=== PATIENT | female | born 1955 | race African-American/Black ===

== ENCOUNTER 2020-11-01 18:58 | Inpatient (IN) | payer OTHER, MEDICARE ==
[~2020-11-01] VITALS: Ht 172.7 cm; Wt 88.2 kg
[2020-11-01 20:54] LABS: HEMATOCRIT. 44.5 % (36.0-48.0); HEMOGLOBIN. 12.5 g/dL (12.0-16.0); MEAN CORPUSCULAR HEMOGLOBIN 30.1 pg (28.0-32.0); MEAN CORPUSCULAR VOLUME 106.8 fL (81.0-99.0); MEAN PLATELET VOLUME 10.8 fl (7.4-10.4); PLATELET 232 x1000/uL (130-400); RED BLOOD CELL COUNT 4.17 mill/uL (4.2-5.4); RED CELL DISTRIBUTION WIDTH 14.3 % (11.6-14.6)
[2020-11-01 20:59] LABS: CHLORIDE 110 mEq/L (98-107)
[2020-11-01 21:01] LABS: PROTHROMBIN TIME 10.9 sec (9.6-11.0)
[2020-11-01 21:04] LABS: ETHANOL BLOOD < 10 mg/dL
[2020-11-01 21:12] LABS: NUCLEATED RED BLOOD CELLS 1 /100 WBC; PLATELET ESTIMATE NORMAL
[2020-11-01 21:25] LABS: BETA HYDROXYBUTYRATE 12.4 mMol/L (0.0-0.3)
[2020-11-01] MEDS ORDERED: INSULIN REGULAR (DRIP) 100 UNITS in SODIUM CHLORIDE 0.9% 99 ML IV ONE (21:45)
[2020-11-01 21:48] LABS: CLARITY URINE CLEAR (CLEAR); COLOR URINE YELLOW (YELLOW); KETONES URINE 3+ (NEGATIVE); LEUKOCYTE ESTERASE URINE NEGATIVE (NEGATIVE); NITRITE URINE NEGATIVE (NEGATIVE); OCCULT BLOOD URINE 1+ (NEGATIVE); PROTEIN URINE 2+ (NEGATIVE); SPECIFIC GRAVITY URINE 1.023 (1.005-1.030); UROBILINOGEN URINE 0.2 E.U./dL (0.2-1.0)
[2020-11-01] MEDS ORDERED: SODIUM CHLORIDE 0.9% 1,000 ML IV ONE ×3 (22:00→22:45)
[2020-11-01 22:06] LABS: *AMPHETAMINES SCREEN URINE NEGATIVE (NEGATIVE); *BARBITURATES SCREEN URINE NEGATIVE (NEGATIVE); *BENZODIAZEPINES SCREEN URINE NEGATIVE (NEGATIVE); *COCAINE SCREEN URINE NEGATIVE (NEGATIVE); METHADONE URINE SCREEN NEGATIVE (NEGATIVE); OPIATES URINE SCREEN NEGATIVE (NEGATIVE)
[2020-11-01 22:07] LABS: CANNABINOID URINE SCREEN NEGATIVE (NEGATIVE); PHENCYCLIDINE URINE SCREEN NEGATIVE (NEGATIVE)
[2020-11-01] MEDS ORDERED: INSULIN REGULAR (DRIP) 100 UNITS in SODIUM CHLORIDE 0.9% 99 ML IV NR (22:45)
[2020-11-02] MEDS ORDERED: ONDANSETRON HCL 4MG/2ML INJ IV PRN (11:30)
[2020-11-02] MEDS ORDERED: ACETAMINOPHEN 325MG TABLET PO PRN (11:30)
[2020-11-02] MEDS ORDERED: SODIUM CHLORIDE 0.9% 1,000 ML IV SCH (11:30)
[2020-11-02] MEDS ORDERED: CEFTRIAXONE 1 G PREMIX 50 ML IV SCH (12:30)
[2020-11-02] MEDS ORDERED: CEFTRIAXONE SODIUM 1 G/VIAL ONE (13:29)
[2020-11-02 14:07] LABS: BG BASE EXCESS -20.8 mmol/L (-2.0-2.0); BG CARBOXYHEMOGLOBIN 0.1 % (0.5-1.5); BG DEOXYHEMOGLOBIN 10.6 % (0.0-5.0); BG HCO3 ACT 6.9 mmol/L (22.0-26.0); BG METHEMOGLOBIN 0.5 % (0.0-1.5); BG OXYGEN SATURATION 89.3 % (92.0-98.5); BG OXYHEMOGLOBIN 88.8 % (94.0-97.0); BG PCO2 22.2 mmHg (35.0-45.0); BG PH 7.112 (7.350-7.450); BG PO2 53.2 mmHg (75.0-100.0); BG SAMPLE SITE RIGHT BRACHIAL; BG VENT MODE NASAL CANNULA
[2020-11-02 14:54] LABS: HEMATOCRIT. 35.9 % (36.0-48.0); HEMOGLOBIN. 11.4 g/dL (12.0-16.0); MEAN CORPUSCULAR HEMOGLOBIN 29.9 pg (28.0-32.0); MEAN CORPUSCULAR VOLUME 93.9 fL (81.0-99.0); MEAN PLATELET VOLUME 10.2 fl (7.4-10.4); PLATELET 231 x1000/uL (130-400); RED BLOOD CELL COUNT 3.82 mill/uL (4.2-5.4); RED CELL DISTRIBUTION WIDTH 12.9 % (11.6-14.6)
[2020-11-02] MEDS: CEFTRIAXONE 1,000 MG in DEXTROSE 5% WATER 50 ML IV SCH (15:00)
[2020-11-02] MEDS ORDERED: INSULIN GLARGINE UD 100 UNITS/ML SYR SUBCUT NR (15:00)
[2020-11-02] MEDS ORDERED: DEXTROSE 50% WATER 50ML SYRINGE IV PRN (15:00)
[2020-11-02 15:22] LABS: PLATELET ESTIMATE NORMAL
[2020-11-02 15:27] LABS: PHOSPHORUS 0.8 mg/dL (2.5-4.9)
[2020-11-02] MEDS: AZITHROMYCIN 500 MG in DEXT 5% WATER 250 ML IV SCH (15:35)
[2020-11-02] MEDS: DEXT 5%/0.45% NACL 1000ML 1,000 ML IV SCH (15:40)
[2020-11-02] MEDS ORDERED: HALOPERIDOL LACTATE 5MG/ML VIAL IM PRN (17:45)
[2020-11-02] MEDS: INSULIN LISPRO (HIGH DOSE) 100 UNITS/ML SUBCUT SCH (18:00)
[2020-11-02] MEDS: BLOOD SUGAR DIAGNOSTIC STRIP TEST SCH (18:24)
[2020-11-02] MEDS ORDERED: HEPARIN 5000 UNITS/ML VIAL SUBCUT SCH (21:00)
[2020-11-03] MEDS: DEXAMETHASONE 10 MG/ML VIAL IV SCH ×2 (01:09→14:26)
[2020-11-03] MEDS ORDERED: HALOPERIDOL LACTATE 5MG/ML VIAL IM PRN (01:15)
[2020-11-03 04:46] LABS: HEMATOCRIT. 41.4 % (36.0-48.0); HEMOGLOBIN. 13.2 g/dL (12.0-16.0); MEAN CORPUSCULAR VOLUME 94.1 fL (81.0-99.0); MEAN PLATELET VOLUME 10.6 fl (7.4-10.4); PLATELET 237 x1000/uL (130-400); RED CELL DISTRIBUTION WIDTH 13.1 % (11.6-14.6)
[2020-11-03 04:47] LABS: BG BASE EXCESS -19.3 mmol/L (-2.0-2.0); BG CARBOXYHEMOGLOBIN 0.4 % (0.5-1.5); BG DEOXYHEMOGLOBIN 10.7 % (0.0-5.0); BG FRACTION INSPIRED OXYGEN 100; BG HCO3 ACT 8.7 mmol/L (22.0-26.0); BG METHEMOGLOBIN 1.6 % (0.0-1.5); BG OXYGEN SATURATION 89.1 % (92.0-98.5); BG OXYHEMOGLOBIN 87.3 % (94.0-97.0); BG PCO2 27.8 mmHg (35.0-45.0); BG PH 7.113 (7.350-7.450); BG SAMPLE SITE RIGHT RADIAL; BG TOTAL HEMOGLOBIN 13.3 g/dL (12.0-18.0); BG VENT MODE MASK - NRB
[2020-11-03 04:52] LABS: CHLORIDE 127 mEq/L (98-107)
[2020-11-03 05:10] LABS: PLATELET ESTIMATE NORMAL
[2020-11-03] MEDS: INSULIN LISPRO (HIGH DOSE) 100 UNITS/ML SUBCUT SCH ×4 (09:09→17:44)
[2020-11-03] MEDS: DEXT 5%/0.45% NACL 1000ML 1,000 ML IV SCH (09:09)
[2020-11-03] MEDS: BLOOD SUGAR DIAGNOSTIC STRIP TEST SCH ×5 (09:10→21:00)
[2020-11-03] MEDS ORDERED: INSULIN GLARGINE UD 100 UNITS/ML SYR SUBCUT SCH (10:00)
[2020-11-03] MEDS ORDERED: DEXTROSE 5% WATER 1,000 ML IV SCH (11:15)
[2020-11-03] MEDS ORDERED: DEXTROSE 50% WATER 50ML SYRINGE IV PRN (11:30)
[2020-11-03] MEDS ORDERED: SODIUM BICARBONATE 50 MEQ in DEXTROSE 5% WATER 1,000 ML IV SCH (12:00)
[2020-11-03] MEDS ORDERED: POTASSIUM PHOS,M-BASIC-D-BASIC 30 MMOL in DEXT 5% WATER 500 ML IV NR (13:00)
[2020-11-03] MEDS: INSULIN GLARGINE UD 100 UNITS/ML SYR SUBCUT SCH (14:26)
[2020-11-03] MEDS: AZITHROMYCIN 500 MG in DEXT 5% WATER 250 ML IV SCH (14:27)
[2020-11-03] MEDS: ENOXAPARIN 100MG/ML SYR SUBCUT SCH (14:30)
[2020-11-03] MEDS ORDERED: NOREPINEPHRINE 8MG/250ML PMX 250 ML IV ONE (15:00)
[2020-11-03] MEDS ORDERED: MIDAZOLAM HCL 100 MG in DEXT 5% WATER 80 ML IV PRN (15:30)
[2020-11-03] MEDS ORDERED: NOREPINEPHRINE 8 MG in DEXT 5% WATER 242 ML IV NR (15:30)
[2020-11-03] MEDS ORDERED: PHENYLEPHRINE 100 MG in DEXT 5% WATER 240 ML IV PRN (15:30)
[2020-11-03] MEDS ORDERED: FENTANYL CITRATE/PF 2,500 MCG in SODIUM CHLORIDE 0.9% 200 ML IV PRN (15:30)
[2020-11-03] MEDS ORDERED: NOREPINEPHRINE 8 MG in DEXT 5% WATER 242 ML IV ONE (15:30)
[2020-11-03 16:19] LABS: BG BASE EXCESS -20.3 mmol/L (-2.0-2.0); BG CARBOXYHEMOGLOBIN 0.2 % (0.5-1.5); BG DEOXYHEMOGLOBIN 3.4 % (0.0-5.0); BG FRACTION INSPIRED OXYGEN 100; BG HCO3 ACT 8.2 mmol/L (22.0-26.0); BG METHEMOGLOBIN 2.3 % (0.0-1.5); BG OXYGEN SATURATION 96.5 % (92.0-98.5); BG OXYHEMOGLOBIN 94.1 % (94.0-97.0); BG PCO2 27.9 mmHg (35.0-45.0); BG PH 7.087 (7.350-7.450); BG PO2 86.1 mmHg (75.0-100.0); BG SAMPLE SITE RIGHT BRACHIAL; BG TOTAL HEMOGLOBIN 11.9 g/dL (12.0-18.0); BG TOTAL RESPIRATORY RATE 28 b/min; BG VENT MODE VENT - AC
[2020-11-03] MEDS: SODIUM BICARBONATE 150 MEQ in DEXTROSE 5% WATER 850 ML IV SCH (16:39)
[2020-11-03] MEDS: CEFTRIAXONE 1,000 MG in DEXTROSE 5% WATER 50 ML IV SCH (16:39)
[2020-11-03] MEDS ORDERED: SODIUM BICARBONATE 8.4% 1 MEQ/ML 50ML SYR IV NR (17:30)
[2020-11-03] MEDS ORDERED: INSULIN LISPRO 100 UNITS/ML SUBCUT SCH (23:30)
[2020-11-04] MEDS: SODIUM BICARBONATE 150 MEQ in DEXTROSE 5% WATER 850 ML IV SCH ×2 (00:54→11:23)
[2020-11-04] MEDS: BLOOD SUGAR DIAGNOSTIC STRIP TEST SCH ×6 (00:54→20:00)
[2020-11-04] MEDS: INSULIN LISPRO 100 UNITS/ML SUBCUT SCH ×5 (03:48→18:06)
[2020-11-04] MEDS: DEXAMETHASONE 10 MG/ML VIAL IV SCH (09:07)
[2020-11-04 09:27] LABS: CHLORIDE 118 mEq/L (98-107); HEMATOCRIT. 33.8 % (36.0-48.0); HEMOGLOBIN. 11.1 g/dL (12.0-16.0); MEAN CORPUSCULAR HEMOGLOBIN 30.2 pg (28.0-32.0); MEAN CORPUSCULAR VOLUME 92.2 fL (81.0-99.0); MEAN PLATELET VOLUME 11.4 fl (7.4-10.4); PLATELET 171 x1000/uL (130-400); RED BLOOD CELL COUNT 3.67 mill/uL (4.2-5.4); RED CELL DISTRIBUTION WIDTH 13.3 % (11.6-14.6)
[2020-11-04] MEDS: INSULIN GLARGINE UD 100 UNITS/ML SYR SUBCUT SCH (10:18)
[2020-11-04 10:41] LABS: NUCLEATED RED BLOOD CELLS 1 /100 WBC; PLATELET ESTIMATE NORMAL
[2020-11-04 12:08] LABS: PHOSPHORUS 2.9 mg/dL (2.5-4.9)
[2020-11-04] MEDS: ENOXAPARIN 100MG/ML SYR SUBCUT SCH (12:13)
[2020-11-04] MEDS ORDERED: POTASSIUM CHLORIDE INJ 40 MEQ in DEXT 5% WATER 250 ML IV ONE (12:30)
[2020-11-04] MEDS: DEXTROSE 5% WATER 1,000 ML IV SCH (13:57)
[2020-11-04] MEDS: AZITHROMYCIN 500 MG in DEXT 5% WATER 250 ML IV SCH (13:57)
[2020-11-04 14:09] LABS: BG BASE EXCESS -7.6 mmol/L (-2.0-2.0); BG CARBOXYHEMOGLOBIN 0.7 % (0.5-1.5); BG DEOXYHEMOGLOBIN 3.3 % (0.0-5.0); BG FRACTION INSPIRED OXYGEN 100; BG HCO3 ACT 17.3 mmol/L (22.0-26.0); BG METHEMOGLOBIN 2.3 % (0.0-1.5); BG OXYGEN SATURATION 96.6 % (92.0-98.5); BG OXYHEMOGLOBIN 93.7 % (94.0-97.0); BG PCO2 32.8 mmHg (35.0-45.0); BG PH 7.339 (7.350-7.450); BG PO2 87.3 mmHg (75.0-100.0); BG SAMPLE SITE RIGHT RADIAL; BG TOTAL HEMOGLOBIN 10.9 g/dL (12.0-18.0); BG VENT MODE VENT - AC
[2020-11-04] MEDS: CEFTRIAXONE 1,000 MG in DEXTROSE 5% WATER 50 ML IV SCH (17:43)
[2020-11-05] MEDS: DEXTROSE 5% WATER 1,000 ML IV SCH ×2 (05:50→22:20)
[2020-11-05 08:34] LABS: BG BASE EXCESS -1.3 mmol/L (-2.0-2.0); BG CARBOXYHEMOGLOBIN 0.3 % (0.5-1.5); BG DEOXYHEMOGLOBIN 2.6 % (0.0-5.0); BG HCO3 ACT 21.7 mmol/L (22.0-26.0); BG METHEMOGLOBIN 2.3 % (0.0-1.5); BG OXYGEN SATURATION 97.3 % (92.0-98.5); BG OXYHEMOGLOBIN 94.8 % (94.0-97.0); BG PCO2 30.9 mmHg (35.0-45.0); BG PH 7.465 (7.350-7.450); BG PO2 95.8 mmHg (75.0-100.0); BG SAMPLE SITE RIGHT RADIAL; BG TOTAL HEMOGLOBIN 10.8 g/dL (12.0-18.0); BG VENT MODE VENT - AC
[2020-11-05] MEDS: DEXAMETHASONE 10 MG/ML VIAL IV SCH (09:15)
[2020-11-05] MEDS: BLOOD SUGAR DIAGNOSTIC STRIP TEST SCH ×5 (09:25→20:00)
[2020-11-05] MEDS: INSULIN LISPRO 100 UNITS/ML SUBCUT SCH ×6 (09:25→20:00)
[2020-11-05] MEDS: INSULIN GLARGINE UD 100 UNITS/ML SYR SUBCUT SCH (10:24)
[2020-11-05] MEDS: ENOXAPARIN 100MG/ML SYR SUBCUT SCH (12:30)
[2020-11-05] MEDS: AZITHROMYCIN 500 MG in DEXT 5% WATER 250 ML IV SCH (13:50)
[2020-11-05] MEDS: CEFTRIAXONE 1,000 MG in DEXTROSE 5% WATER 50 ML IV SCH (14:22)
[2020-11-06 06:02] LABS: HEMATOCRIT. 26.6 % (36.0-48.0); HEMOGLOBIN. 8.5 g/dL (12.0-16.0); MEAN CORPUSCULAR VOLUME 90.7 fL (81.0-99.0); MEAN PLATELET VOLUME 11.1 fl (7.4-10.4); PLATELET 197 x1000/uL (130-400); RED BLOOD CELL COUNT 2.93 mill/uL (4.2-5.4); RED CELL DISTRIBUTION WIDTH 13.4 % (11.6-14.6)
[2020-11-06 06:08] LABS: CHLORIDE 111 mEq/L (98-107)
[2020-11-06] MEDS: DEXT 5%/0.45% NACL 1000ML 1,000 ML IV SCH (07:15)
[2020-11-06] MEDS: BLOOD SUGAR DIAGNOSTIC STRIP TEST SCH ×4 (08:00→17:15)
[2020-11-06] MEDS: INSULIN LISPRO 100 UNITS/ML SUBCUT SCH ×4 (08:00→18:00)
[2020-11-06] MEDS: DEXAMETHASONE 10 MG/ML VIAL IV SCH (09:20)
[2020-11-06] MEDS: INSULIN GLARGINE UD 100 UNITS/ML SYR SUBCUT SCH (10:15)
[2020-11-06 11:55] LABS: PLATELET ESTIMATE NORMAL
[2020-11-06] MEDS: ENOXAPARIN 100MG/ML SYR SUBCUT SCH (12:22)
[2020-11-06 17:11] LABS: BG BASE EXCESS -4.2 mmol/L (-2.0-2.0); BG CARBOXYHEMOGLOBIN 0.5 % (0.5-1.5); BG DEOXYHEMOGLOBIN 1.3 % (0.0-5.0); BG FRACTION INSPIRED OXYGEN 75; BG HCO3 ACT 19.2 mmol/L (22.0-26.0); BG OXYGEN SATURATION 98.7 % (92.0-98.5); BG OXYHEMOGLOBIN 97.2 % (94.0-97.0); BG PCO2 28.8 mmHg (35.0-45.0); BG PH 7.441 (7.350-7.450); BG PO2 153.4 mmHg (75.0-100.0); BG SAMPLE SITE RIGHT RADIAL; BG TOTAL HEMOGLOBIN 9.2 g/dL (12.0-18.0); BG TOTAL RESPIRATORY RATE 30 b/min; BG VENT MODE VENT - AC
[2020-11-06 17:51] LABS: CREATINE KINASE 180 IU/L (26-192)
[2020-11-07] MEDS: BLOOD SUGAR DIAGNOSTIC STRIP TEST SCH ×6 (00:20→20:00)
[2020-11-07] MEDS: INSULIN LISPRO 100 UNITS/ML SUBCUT SCH ×6 (00:22→20:00)
[2020-11-07 06:52] LABS: HEMATOCRIT. 27.6 % (36.0-48.0); HEMOGLOBIN. 8.8 g/dL (12.0-16.0); MEAN CORPUSCULAR HEMOGLOBIN 29.8 pg (28.0-32.0); MEAN CORPUSCULAR VOLUME 93.2 fL (81.0-99.0); MEAN PLATELET VOLUME 11.5 fl (7.4-10.4); PLATELET 191 x1000/uL (130-400); RED BLOOD CELL COUNT 2.96 mill/uL (4.2-5.4); RED CELL DISTRIBUTION WIDTH 13.8 % (11.6-14.6)
[2020-11-07 06:54] LABS: CHLORIDE 107 mEq/L (98-107)
[2020-11-07 06:59] LABS: PHOSPHORUS 3.9 mg/dL (2.5-4.9)
[2020-11-07 08:07] LABS: BG BASE EXCESS -6.9 mmol/L (-2.0-2.0); BG CARBOXYHEMOGLOBIN 0.3 % (0.5-1.5); BG DEOXYHEMOGLOBIN 3.3 % (0.0-5.0); BG FRACTION INSPIRED OXYGEN 100; BG HCO3 ACT 18.3 mmol/L (22.0-26.0); BG OXYGEN SATURATION 96.7 % (92.0-98.5); BG OXYHEMOGLOBIN 95.4 % (94.0-97.0); BG PCO2 35.4 mmHg (35.0-45.0); BG PH 7.332 (7.350-7.450); BG PO2 96.1 mmHg (75.0-100.0); BG SAMPLE SITE RIGHT RADIAL; BG TOTAL HEMOGLOBIN 9.8 g/dL (12.0-18.0); BG VENT MODE VENT - AC
[2020-11-07] MEDS: DEXAMETHASONE 10 MG/ML VIAL IV SCH (09:54)
[2020-11-07] MEDS: INSULIN GLARGINE UD 100 UNITS/ML SYR SUBCUT SCH (11:30)
[2020-11-07] MEDS: ENOXAPARIN 100MG/ML SYR SUBCUT SCH (12:30)
[2020-11-07] MEDS: DEXT 5%/0.45% NACL 1000ML 1,000 ML IV SCH ×2 (12:31→23:05)
[2020-11-07 14:20] LABS: NUCLEATED RED BLOOD CELLS 5 /100 WBC; PLATELET ESTIMATE NORMAL
[2020-11-07] MEDS ORDERED: CEFTRIAXONE 1 G PREMIX 50 ML IV SCH (17:00)
[2020-11-07] MEDS ORDERED: CEFTRIAXONE 1,000 MG in DEXTROSE 5% WATER 50 ML IV SCH (17:30)
[2020-11-07] MEDS ORDERED: CEFTRIAXONE SODIUM 1 G/VIAL ONE (18:06)
[2020-11-07] MEDS ORDERED: AZITHROMYCIN 500 MG in SODIUM CHLORIDE 0.9% 250 ML IV SCH (18:30)
[2020-11-07 21:33] LABS: TOTAL IRON BINDING CAPACITY 140 ug/dL (250-450)
[2020-11-07] MEDS ORDERED: INSULIN GLARGINE UD 100 UNITS/ML SYR SUBCUT SCH (22:00)
[2020-11-07 22:06] LABS: VITAMIN B12 SERUM > 2000.0 pg/mL (211-911)
[2020-11-07 23:22] LABS: FERRITIN 1650 ng/mL (10-291)
[2020-11-08] MEDS ORDERED: PHENYLEPHRINE 100 MG in SODIUM CHLORIDE 0.9% 240 ML IV SCH ×2
[2020-11-08 03:07] LABS: BG DEOXYHEMOGLOBIN 20.1 % (0.0-5.0); BG FRACTION INSPIRED OXYGEN 100; BG HCO3 ACT 17.6 mmol/L (22.0-26.0); BG METHEMOGLOBIN 1.4 % (0.0-1.5); BG OXYGEN SATURATION 79.4 % (92.0-98.5); BG OXYHEMOGLOBIN 77.5 % (94.0-97.0); BG PCO2 40.8 mmHg (35.0-45.0); BG PH 7.253 (7.350-7.450); BG PO2 46.9 mmHg (75.0-100.0); BG TOTAL HEMOGLOBIN 11.6 g/dL (12.0-18.0); BG VENT MODE VENT - AC
[2020-11-08] MEDS ORDERED: NOREPINEPHRINE 8 MG in SODIUM CHLORIDE 0.9% 242 ML IV PRN (04:30)
[2020-11-08] MEDS ORDERED: SODIUM CHL 0.45% + KCL 20MEQ/L 1,000 ML IV SCH (06:00)
[2020-11-08] MEDS ORDERED: DOPAMINE 800MG PREMIX (DOUBLE) 250 ML IV ONE (06:30)
[2020-11-08 06:55] VITALS: BP 63/45
== END 2020-11-08 07:07 | disposition expired | DRG 870 ==
LOC: ER 18:58 → EDBEDREQ 22:38 → EDBEDREQSVC 22:38 → EDBEDREQTM 22:38 → MICUSO 11-02 22:35 → CANBEDREQ 11-08 07:23
PROVIDERS: ADMIT Internal Medicine; ATTEND Internal Medicine
PROC: 5A1955Z Respiratory Ventilation, Greater than 96 Consecutive Hours (ICD-10-PCS; principal; 2020-11-03)
PROC: 0BH17EZ Insertion of Endotracheal Airway into Trachea, Via Natural or Artificial Opening (ICD-10-PCS; 2020-11-03)
PROC: 05HY33Z Insertion of Infusion Device into Upper Vein, Percutaneous Approach (ICD-10-PCS; 2020-11-04)
PROC: 06HY33Z Insertion of Infusion Device into Lower Vein, Percutaneous Approach (ICD-10-PCS; 2020-11-07)
PROC: B54CZZA Ultrasonography of Left Lower Extremity Veins, Guidance (ICD-10-PCS; 2020-11-07)
PROC: 5A1D70Z Performance of Urinary Filtration, Intermittent, Less than 6 Hours Per Day (ICD-10-PCS; 2020-11-07)
DX: A41.89 Other specified sepsis (principal); U07.1 COVID-19; R65.21 Severe sepsis with septic shock; E11.10 Type 2 diabetes mellitus with ketoacidosis without coma; G93.41 Metabolic encephalopathy; J96.01 Acute respiratory failure with hypoxia; J12.82 Pneumonia due to coronavirus disease 2019; N18.6 End stage renal disease; E44.0 Moderate protein-calorie malnutrition; E87.0 Hyperosmolality and hypernatremia; E87.4 Mixed disorder of acid-base balance; N17.9 Acute kidney failure, unspecified; I12.0 Hypertensive chronic kidney disease with stage 5 chronic kidney disease or end stage renal disease; I69.354 Hemiplegia and hemiparesis following cerebral infarction affecting left non-dominant side; E83.39 Other disorders of phosphorus metabolism; E87.6 Hypokalemia; J98.2 Interstitial emphysema; R74.01 Elevation of levels of liver transaminase levels; T68.XXXA Hypothermia, initial encounter; R57.1 Hypovolemic shock; E11.22 Type 2 diabetes mellitus with diabetic chronic kidney disease; Z99.2 Dependence on renal dialysis; Z79.899 Other long term (current) drug therapy; Z68.29 Body mass index [BMI] 29.0-29.9, adult
CPT/HCPCS: 36415; 36556; 36600; 71045; 76937; 80048; 80053; 80305; 80320; 81003; 82010; 82375; 82550; 82607; 82728; 82805; 82962; 83036; 83540; 83550; 83605; 83735; 84100; 84145; 84484; 85025; 93005; 94003; 96361; 96365; 96367; 96368; 96372; 96375; 99291; C1725; C1752; C9803; J0456; J0696; J1100; J1265; J1630; J1644; J1650; J1815; J2250; J2370; J3480; J3490; J7030; J7050; J7060; J7070; U0003; G0480